=== PATIENT | female | born 1955 | race American Indian/Alaskan Native ===

== ENCOUNTER → 2024-11-01 | Outpatient (CLI) | payer OTHER, SELFPAY ==
[2024-11-01 10:15] LABS: Alanine Aminotransferase 13 U/L (10-49); Albumin, Serum 4.1 gm/dL (3.4-4.8); Albumin/Globulin Ratio 1.9 (1.2-2.2); Alkaline Phosphatase 120 U/L (46-116); Anion Gap 8 (7-16); Aspartate Amino Transferase 15 U/L (0-34); BUN/Creatinine Ratio 16 Ratio (12-20); Bilirubin,Total 0.9 mg/dL (0.3-1.2); Blood Urea Nitrogen 13 mg/dL (9-23); Calcium 9.7 mg/dL (8.3-10.6); Calcium (Corrected) 9.7 mg/dL (8.5-10.1); Carbon Dioxide 25.8 mMol/L (20.0-31.0); Chloride 107 mMol/L (98-107); Creatinine (Component) 0.8 mg/dL (0.6-1.3); Globulin 2.2 gm/dL (2.3-3.5); Glucose 97 mg/dL (74-106); Osmolality,Calculated 281 (275-295); Potassium 4.8 mMol/L (3.4-5.1); Sodium 141 mMol/L (136-145); Thyroid Stimulating Hormone 2.09 uIU/mL (0.55-4.78); Total Protein 6.3 gm/dL (5.7-8.2); eGFR > 60 See Note
[2024-11-01 15:31] LABS: Cardiac Risk Estimate 2.9 RATIO (3.7-5.6); Cholesterol 171 mg/dL (132-200); HDL Cholesterol 59 mg/dL (40-60); LDL Cholesterol,Calculated 89 mg/dL (0-130); Triglycerides 117 mg/dL (30-150)
== END | disposition home or self-care (01) ==
PROVIDERS: PCP Internal Medicine; Referring Provider Internal Medicine Cardiovascular Disease; Visit Provider Internal Medicine Cardiovascular Disease
DX: E78.5 Hyperlipidemia, unspecified (principal); I10 Essential (primary) hypertension; E03.9 Hypothyroidism, unspecified
CPT/HCPCS: 36415; 80053; 80061; 84443

== ENCOUNTER → 2024-12-06 | Outpatient (CLI) | payer OTHER, SELFPAY ==
--- NOTE | 2024-12-06 | XR_ITS ---
Examination: Lumbar spine, 5 views Technique: Lumbar spine AP, lateral, coned lateral lower lumbar spine, bilateral obliques 5 views Exam date and time: December 06, 2024 1158 hours INDICATIONS: Low back pain months FINDINGS: Moderate osteopenia Lumbar levoscoliosis 10 degrees Moderate narrowing hip joints Advanced facet arthropathy at the lower 2 lumbar levels Grade 1 anterolisthesis L4 on L5 Moderate descending L4-L5 Advanced disc narrowing L5-S1 IMPRESSION: Advanced degenerative disc disease L5-S1 with spinal stenosis
== END | disposition home or self-care (01) ==
LOC: CDIM 11:06
PROVIDERS: PCP Internal Medicine; Referring Provider Orthopaedic Surgery; Visit Provider Orthopaedic Surgery
DX: M51.379 Other intervertebral disc degeneration, lumbosacral region without mention of lumbar back pain or lower extremity pain (principal); M48.07 Spinal stenosis, lumbosacral region
CPT/HCPCS: 72110

== ENCOUNTER → 2025-03-27 | Outpatient (CLI) | payer OTHER, SELFPAY ==
--- NOTE | 2025-03-27 13:48 | XR_ITS ---
Examination: PA lateral chest 2 views TECHNIQUE: Upright PA lateral chest 2 views Date and time: March 27, 2025 1408 hours Comparison 07/31/2023 INDICATIONS: Diagnosis presence of other specified devices FINDINGS: Stable position presumed epicardial pacing lead CABG Minimal prominence left ventricle Retrocardiac gastric hernia No pneumonia or pulmonary edema Minor scarring in the left upper lobe IMPRESSION: No interval pneumonia or pulmonary edema
== END | disposition home or self-care (01) ==
LOC: CDIM 13:32
PROVIDERS: PCP Internal Medicine; Referring Provider Orthopaedic Surgery; Visit Provider Orthopaedic Surgery
DX: Z97.8 Presence of other specified devices (principal)
CPT/HCPCS: 71046

== ENCOUNTER → 2025-07-05 | Outpatient (CLI) | payer OTHER, SELFPAY ==
[2025-07-05 08:52] LABS: Collection Type, Urine Clean Catch
[2025-07-05 09:47] LABS: Bacteria,Urine Rare; Bilirubin,Urine Negative (Negative); Blood,Urine Negative (Negative); Clarity,Urine Clear (Clear/Hazy); Color,Urine Lt-Yellow (Lt Yel-Yel); Glucose, Urine Negative (Negative); Ketones,Urine Negative (Negative); Leukocyte Esterase,Urine Negative (Negative); Nitrite,Urine Negative (Negative); PH,Urine 6.5 (5.0-7.0); Protein,Urine Negative (Neg - Trace); RBC,Urine 3 /hpf (0-3); Specific Gravity,Urine 1.021 (1.001-1.035); Squamous Epithelial Cell,Urine 7 /hpf (0-5); Urobilinogen,Urine Negative mg/dL (0.0-1.0); WBC,Urine 1 /hpf (0-5)
[2025-07-05 09:51] LABS: Basophils # (Auto) 0.1 Thou/mm3 (0.0-0.2); Basophils % (Auto) 1 % (0-2.5); Eosinophils # (Auto) 0.1 Thou/mm3 (0.0-0.5); Eosinophils % (Auto) 2 % (0-10); Hematocrit 41.5 % (36.0-46.0); Hemoglobin 13.6 g/dL (12.0-16.0); Immature Granulocytes Auto 0.02 Thou/mm3 (0.00-0.00); Lymphocytes # (Auto) 2.0 Thou/mm3 (1.0-4.8); Lymphocytes % (Auto) 27 % (10-50); Mean Corpuscular HGB Conc 32.8 g/dl (31.0-37.0); Mean Corpuscular Hemoglobin 31.3 pg (25.0-35.0); Mean Corpuscular Volume 96 fL (80-100); Monocytes # (Auto) 0.7 Thou/mm3 (0.0-0.8); Monocytes % (Auto) 9 % (0-12); Neutrophils # (Auto) 4.4 Thou/mm3 (1.8-7.7); Neutrophils % (Auto) 61 % (37-80); Nucleated Red Blood Cell # 0.00 Thou/mm3 (0.00-0.00); Nucleated Red Blood Cell % 0 /100 WBC (0); Platelet Count 312 Thou/mm3 (140-440); RDW Standard Deviation 43.6 fL (36.4-46.3); Red Blood Count 4.34 Miln/mm3 (4.00-5.20); White Blood Count 7.2 Thou/mm3 (3.6-11.0)
[2025-07-05 09:52] LABS: Glucose Estimated Average 128 mg/dL (80-131); Hemoglobin A1C 6.1 % Hgb (4.8-6.0)
[2025-07-05 10:05] LABS: Vitamin B12 349 pg/mL (211-911); Vitamin D 25 Hydroxy Total 39.4 ng/mL (7.3-40.2)
[2025-07-05 10:13] LABS: Alanine Aminotransferase 13 U/L (10-49); Albumin, Serum 4.4 gm/dL (3.4-4.8); Albumin/Globulin Ratio 1.6 (1.2-2.2); Alkaline Phosphatase 115 U/L (46-116); Anion Gap 9 (7-16); Aspartate Amino Transferase 17 U/L (0-34); BUN/Creatinine Ratio 16 Ratio (12-20); Bilirubin,Total 0.9 mg/dL (0.3-1.2); Blood Urea Nitrogen 13 mg/dL (9-23); Calcium 9.5 mg/dL (8.3-10.6); Calcium (Corrected) 9.5 mg/dL (8.5-10.1); Carbon Dioxide 27.6 mMol/L (20.0-31.0); Chloride 105 mMol/L (98-107); Creatinine (Component) 0.8 mg/dL (0.6-1.3); Globulin 2.7 gm/dL (2.3-3.5); Glucose 97 mg/dL (74-106); Osmolality,Calculated 283 (275-295); Potassium 4.8 mMol/L (3.4-5.1); Sodium 142 mMol/L (136-145); Thyroid Stimulating Hormone 2.23 uIU/mL (0.55-4.78); Total Protein 7.1 gm/dL (5.7-8.2); Uric Acid 5.6 mg/dL (3.1-7.8); eGFR > 60 See Note
[2025-07-05 10:32] LABS: Cardiac Risk Estimate 2.6 RATIO (3.7-5.6); Cholesterol 163 mg/dL (132-200); HDL Cholesterol 62 mg/dL (40-60); LDL Cholesterol,Calculated 75 mg/dL (0-130); Triglycerides 129 mg/dL (30-150)
== END | disposition home or self-care (01) ==
LOC: COPL 07:51
PROVIDERS: PCP Internal Medicine; Referring Provider Internal Medicine; Visit Provider Internal Medicine
DX: Z00.00 Encounter for general adult medical examination without abnormal findings (principal); I10 Essential (primary) hypertension; E78.5 Hyperlipidemia, unspecified; I25.10 Atherosclerotic heart disease of native coronary artery without angina pectoris; I48.91 Unspecified atrial fibrillation
CPT/HCPCS: 36415; 80053; 80061; 81001; 82306; 82607; 83036; 84443; 84550; 85025

== ENCOUNTER 2025-07-18 21:47 | Emergency (ER) | payer OTHER, SELFPAY ==
--- NOTE | 2025-07-18 21:52 | EKG_ITS ---
[facility] Test Date: 2025-07-18 Pat Name: AMANDA CEVALLOS Department: Room: - Gender: Female [employer]: : 1955 Requested By: ED Temporary Provider Order Number: [id number] Reading MD: ED Temporary Provider Measurements Intervals [place] Rate: 140 P: SC: QRS: 52 QRSD: 162 T: -64 QT: 329 QTc: 502 Interpretive Statements ATRIAL FLUTTER/TACHYCARDIA WITH RAPID VENTRICULAR RESPONSE INTRAVENTRICULAR CONDUCTION DELAY [130+ ms QRS DURATION] Compared to ECG 08/09/2024 19:52:02 Intraventricular conduction delay now present Sinus rhythm no longer present /store/S0/[id number].pdf
--- NOTE | 2025-07-18 22:01 | EDNOTE_ITS ---
ED Chest Pain RME/HPI General Chief Complaint: Chest Pain Stated Complaint: HEART RACING, PT STATES AFIB Time Seen by Provider: 07/18/25 22:04 Arrival date/time: 07/18/25 21:47 RME / HPI RME / HPI narrative: See [facility] for Dr. White's HPI documentation. Related Data Home Medications ?Medication ?Instructions ?Recorded ?Confirmed atorvastatin 40 mg tablet 40 mg PO QDAY 07/24/1908/01 spironolactone 25 mg tablet 25 mg PO QDAY 07/24/19 furosemide 20 mg tablet (Lasix) 40 mg PO EVERYOTHERDAY 10/12/19 08/01/23 levothyroxine 25 mcg tablet 25 mcg PO QDAY 10/12/19 estradiol 0.5 mg tablet 0.5 mg PO QDAY 12/13/1907/15 warfarin 2.5 mg tablet 2.5 mg PO QDAY 08/01/2307/15 Allergies Allergy/AdvReac Type Severity Reaction Status Date / Time naproxen Allergy Severe Swelling Verified 06/22/23 11:57 of Lip/Tongue/Throat Review of Systems Review of Systems Systems Reviewed: All systems reviewed, normal except as documented ED Exam Narrative Physical exam: See [facility] for Dr. White's physical exam documentation. Course Course Course Narrative: CXR is ordered for determining the etiology of chest pain. Quality Measures none Orders Category Date Time Status Bedside COVID-19 Antigen Test NOW Care 07/18/25 22:05 Completed Bedside Influenza A&B Antigen Test NOW Care 07/18/25 22:05 Completed EKG (ED ONLY) *Do not use* NOW Care 07/18/25 21:52 Completed Saline [Insert IV] NOW Care 07/18/25 22:05 Completed EKG (ED Only) Stat Exams 07/18/25 21:52 Ordered XR chest 1V portable Stat Exams 07/18/25 22:05 Completed Alcohol, Blood Medical Stat Lab 07/18/25 22:30 Completed BNP [B-Type Natriuretic Peptide] Stat Lab 07/18/25 22:30 Completed Bilirubin,Direct Stat Lab 07/18/25 22:30 Completed CBC Stat Lab 07/18/25 22:30 Completed CMP [Comprehensive Metabolic Panel] Stat Lab 07/18/25 22:30 Completed D-Dimer Stat Lab 07/18/25 22:30 Completed Magnesium Stat Lab 07/18/25 22:30 Completed PT [Prothrombin Time with INR] Stat Lab 07/18/25 22:30 Completed PTT [Partial Thromboplastin Time] Stat Lab 07/18/25 22:30 Completed TSH [Thyroid Stimulating Hormone] Stat Lab 07/18/25 22:30 Completed Troponin I Stat Lab 07/18/25 22:30 Completed Troponin I Stat Lab 07/19/25 02:16 Completed UA, C/S IF [Urinalysis, C/S if Indicated] Stat Lab 07/18/25 23:24 Completed DILTIAZEM in D5W 125 MG Med 07/18/25 22:08 Discontinued 125 mg in 125 ml IV 5 mg/hr Diltiazem Inj [Cardizem Inj] Med 07/18/25 22:08 Discontinued 20 mg IV X1 ONE Vital Signs Vital signs: Vital Signs Temperature 98.2 F 07/18/25 22:06 Pulse Rate 122 H 07/18/25 22:06 Respiratory Rate 19 07/18/25 22:06 Blood Pressure 143/107 H 07/18/25 22:06 Pulse Oximetry (%) 97 07/18/25 22:06 Oxygen Delivery Method Room Air 07/18/25 22:06 Chest Pain MDM Narrative MDM Narrative:: This section includes all my notes and documentations, including HPI, PE, and ED course. Souleymane White MD HPI: 70yo female with a history of CABG, tricuspid valve replacement, Afib on Warfarin, HTN here with palpitations and chest pain for the last couple hours. No shortness of breath. Insole And Outsole Preparer is Dr. Brewster. No other complaints reported. ROS: All negative except as documented in HPI. Physical Exam: General: Alert and oriented. No acute distress when remaining still. Eyes: Conjunctivae and lids clear. ENT: No nasal congestion. Neck: Supple. Heart: Irregular irregular (140 bpm). Lungs: No respiratory distress. Good air movement. No rhonchi, wheezing, rales. Abdomen: Soft and nontender. Normal bowel sounds. No distension. No rebound or guarding. Back: No CVA tenderness. Skin: Warm and dry. Neuro: Alert and oriented X 3. I reviewed all diagnostic test results. My interpretation of the EKG is atrial fibrillation with RVR. My interpretation of the chest x-ray is unremarkable. Blood tests and urine tests are unremarkable. COVID/Influenza negative. At this point, diagnoses include: Atrial fibrillation with rapid ventricular response Treatment here included: Cardizem bolus Significant improvement noted. Recommended outpatient mangement. Based on my best medical judgment, made decision no further evaluation or treatment indicated at this time. Patient understands and agrees to the discharge instructions customized and printed, see below. Discharge instructions from Dr. White: 1. After extensive evaluation, there is no life-threatening condition. Such as heart attack or pulmonary embolism (blood clots in your lungs) or pneumothorax (collapsed lung). 2. You were successfully treated for atrial fibrillation with severely high heart rate. 3. Make sure you take all your medications, including diltiazem this morning. 4. See your manager infusion later today on 07/19/25 for recheck and further care. At minimum, call the office and let them know what happened and ask for further instructions. 5. Seek immediate medical care with worsening or with any concerns. Souleymane White MD Patient data External records reviewed:: [facility] previous records (Per chart review, patient was seen here on 08/09/24 for CVA.) Clinical information provided by:: patient Social determinants that could affect healthcare access:: none Patient has the following chronic illnesses:: Hypothyroidism, HTN, aFib, CABG, tricuspid valve replacement How is presenting disease/condition affected by chronic disease/condition?: uneffected by Evaluation data The following diagnostics were reviewed and interpreted by me:: lab results, radiology exam(s) and EKG tracing(s) (My interpretation of the EKG is: Atrial fibrillation/flutter with RVR (140 bpm) with nonspecific ST-T changes. Souleymane White MD) Lab and/or radiology exams considered but not ordered:: none Interpretation Summary: I reviewed all diagnostic test results. My interpretation of the EKG is atrial fibrillation with RVR. My interpretation of the chest x-ray is unremarkable. Blood tests and urine tests are unremarkable. COVID/Influenza negative. Medications / Prescriptions Medications or Prescriptions considered but not ordered:: none Medication administrations:: Medication Administration History Discontinued Medications Diltiazem HCl (Diltiazem Inj 5 Mg/Ml Vial 5 Ml) 20 mg IV X1 ONE Stop: 07/18/25 22:09 Last Admin: 07/18/25 22:24 Dose: 20 mg Documented By: MARRY Diltiazem HCl (Diltiazem In D5w 125 Mg) 125 mg in 125 mls @ 5 mls/hr IV .Q24H MAXIME Stop: 08/17/25 22:07 Last Infusion: 07/19/25 01:11 Dose: 0 mg/hr, 0 mls/hr Documented By: Admin: 07/18/25 22:25 Dose: 5 mg/hr, 5 mls/hr Documented By: MARRY Cardizem Consultations Consultation(s) initiated? (list below): No Diagnosis Chest Pain Differential Diagnosis: pneumothorax, stable angina, unstable angina pectoris, atypical chest pain, st elevation myocardial infarction and costochondritis Most likely diagnosis given after review of the tests above:: Atrial fibrillation with rapid ventricular response Admission Indicated Admission indicated?: not indicated Explain why admission is indicated or not indicated:: With significant improvement and no condition needing emergent intervention, there was no indication for admission. Admission Request Was there a request for admission?: No Disposition Plan Disposition Plan: Discharge Discharge Attestation Discharge Attestation: The patient and all family members were given an opportunity to ask questions and understood the discharge instructions. Discharge instructions specifically effects, indications for sooner follow up or return to the emergency department, and the expected course of current diagnosis. Patient condition: Stable Discharge Plan Plan Patient Disposition: HOME (Self Care) Prescriptions/Referrals Prescriptions/Med Rec: No Action atorvastatin 40 mg tablet 40 mg PO QDAY spironolactone 25 mg tablet 25 mg PO QDAY levothyroxine 25 mcg Tablet 25 mcg PO QDAY furosemide [Lasix] 20 mg Tablet 40 mg PO EVERYOTHERDAY estradiol 0.5 mg tablet 0.5 mg PO QDAY warfarin 2.5 mg Tablet 2.5 mg PO QDAY Referrals: Jose Womack MD [Primary Care Provider, Nephrology] - In 1 week Problem List Clinical Impression: Atrial fibrillation with rapid ventricular response Patient/Caregiver Discharge Instructions Discharge Activity: activity as tolerated Education Materials: ED Atrial Fibrillation Additional Instructions: Discharge instructions from Dr. White: 1. After extensive evaluation, there is no life-threatening condition.? Such as heart attack or pulmonary embolism (blood clots in your lungs) or pneumothorax (collapsed lung). 2. You were successfully treated for atrial fibrillation with severely high heart rate. 3. Make sure you take all your medications, including diltiazem this morning. 4. See your manager infusion later today on 07/19/25 for recheck and further care. At minimum, call the office and let them know what happened and ask for further instructions. 5. Seek immediate medical care with worsening or with any concerns.?? Print Language: [place] Stand Alone Forms: Natalie Award Info., Patient Portal Info Letter
[2025-07-18 22:05] VITALS: BMI 31.2
--- NOTE | 2025-07-18 22:05 | XR_ITS ---
Examination: AP chest single view Technique one AP portable upright chest single view Date and time: July 18, 2025, 10:15 PM, comparison 06/27/2025 Indications: Shortness of breath chest pain today. Findings: Mild enlargement cardiac contour Median sternotomy wires Stable position cardiac leads Mild vascular congestion. No interval lobar pneumonia or pulmonary edema Linear opacity overlies the right upper chest and soft tissue, clinical correlation advised Impression: Mild vascular congestion No interval pneumonia or pulmonary edema
[2025-07-18 22:06] VITALS: BP 143/107; PULSE 122; RESP 19; TEMP 36.8; O2SAT 97
[2025-07-18 22:24] VITALS: BP 141/86; PULSE 136
[2025-07-18] MEDS: DILTIAZEM INJ 5 MG/ML VIAL 5 ML 20 MG IV (22:24)
[2025-07-18 22:25] VITALS: BP 141/86; PULSE 125
[2025-07-18] MEDS: DILTIAZEM in D5W 125 MG 125 MG/125 ML BAG IV (22:25)
[2025-07-18 22:42] LABS: Basophils # (Auto) 0.1 Thou/mm3 (0.0-0.2); Basophils % (Auto) 1 % (0-2.5); Eosinophils # (Auto) 0.2 Thou/mm3 (0.0-0.5); Eosinophils % (Auto) 2 % (0-10); Hematocrit 42.0 % (36.0-46.0); Hemoglobin 14.3 g/dL (12.0-16.0); Immature Granulocytes Auto 0.02 Thou/mm3 (0.00-0.00); Lymphocytes # (Auto) 2.9 Thou/mm3 (1.0-4.8); Lymphocytes % (Auto) 29 % (10-50); Mean Corpuscular HGB Conc 34.0 g/dl (31.0-37.0); Mean Corpuscular Hemoglobin 31.8 pg (25.0-35.0); Mean Corpuscular Volume 93 fL (80-100); Monocytes # (Auto) 1.3 Thou/mm3 (0.0-0.8); Monocytes % (Auto) 13 % (0-12); Neutrophils # (Auto) 5.6 Thou/mm3 (1.8-7.7); Neutrophils % (Auto) 56 % (37-80); Nucleated Red Blood Cell # 0.00 Thou/mm3 (0.00-0.00); Nucleated Red Blood Cell % 0 /100 WBC (0); Platelet Count 315 Thou/mm3 (140-440); RDW Standard Deviation 43.0 fL (36.4-46.3); Red Blood Count 4.50 Miln/mm3 (4.00-5.20); White Blood Count 10.0 Thou/mm3 (3.6-11.0)
[2025-07-18 23:05] LABS: B-Type Natriuretic Peptide 77 pg/mL (0-100)
[2025-07-18 23:11] LABS: D-Dimer < 250 ng/mL (<600)
[2025-07-18 23:17] LABS: INR 2.7 (0.9-1.3); Partial Thromboplastin Time 41.2 Seconds (22.0-36.0); Prothrombin Time 27.7 Seconds (9.0-12.2)
[2025-07-18 23:28] LABS: Alanine Aminotransferase 12 U/L (10-49); Albumin, Serum 4.7 gm/dL (3.4-4.8); Albumin/Globulin Ratio 1.7 (1.2-2.2); Alcohol, Blood Medical < 3.0 mg/dL (0-10.0); Alkaline Phosphatase 153 U/L (46-116); Anion Gap 13 (7-16); Aspartate Amino Transferase 14 U/L (0-34); BUN/Creatinine Ratio 13 Ratio (12-20); Bilirubin,Direct 0.2 mg/dL (0.0-0.3); Bilirubin,Total 0.8 mg/dL (0.3-1.2); Blood Urea Nitrogen 13 mg/dL (9-23); Calcium 9.8 mg/dL (8.3-10.6); Calcium (Corrected) 9.8 mg/dL (8.5-10.1); Carbon Dioxide 24.3 mMol/L (20.0-31.0); Chloride 105 mMol/L (98-107); Creatinine (Component) 1.0 mg/dL (0.6-1.3); Estimated Creatinine Clearance 45.2 mL/min (>60); Globulin 2.7 gm/dL (2.3-3.5); Glucose 93 mg/dL (74-106); Magnesium 2.3 mg/dL (1.6-2.6); Osmolality,Calculated 283 (275-295); Potassium 4.2 mMol/L (3.4-5.1); Sodium 142 mMol/L (136-145); Thyroid Stimulating Hormone 4.56 uIU/mL (0.55-4.78); Total Protein 7.4 gm/dL (5.7-8.2); Troponin I < 0.002 ng/mL (0.0-0.045); eGFR 60 See Note
[2025-07-18 23:38] LABS: Collection Type, Urine Clean Catch
[2025-07-19] VITALS: BP 102/68; PULSE 95; RESP 16; TEMP 36.6; O2SAT 95
[2025-07-19 00:20] LABS: Bacteria,Urine Rare; Bilirubin,Urine Negative (Negative); Blood,Urine Negative (Negative); Clarity,Urine Clear (Clear/Hazy); Color,Urine Colorless (Lt Yel-Yel); Culture Indicated,Urine Not Indicated; Glucose, Urine Negative (Negative); Ketones,Urine Negative (Negative); Leukocyte Esterase,Urine Negative (Negative); Nitrite,Urine Negative (Negative); PH,Urine 7.0 (5.0-7.0); Protein,Urine Negative (Neg - Trace); RBC,Urine 1 /hpf (0-3); Specific Gravity,Urine 1.007 (1.001-1.035); Squamous Epithelial Cell,Urine 1 /hpf (0-5); Urobilinogen,Urine Negative mg/dL (0.0-1.0); WBC,Urine 1 /hpf (0-5)
[2025-07-19 00:32] VITALS: BP 102/68; PULSE 83; RESP 15; O2SAT 96
[2025-07-19 03:05] LABS: Troponin I < 0.002 ng/mL (0.0-0.045)
[2025-07-19 03:45] VITALS: BP 112/62; PULSE 67; RESP 15; TEMP 36.8; O2SAT 98
== END 2025-07-19 03:46 | disposition home or self-care (01) ==
PROVIDERS: Emergency Provider Emergency Medicine; PCP Internal Medicine
DX: I48.91 Unspecified atrial fibrillation (principal)
CPT/HCPCS: 36415; 71045; 80053; 80320; 81001; 82248; 83735; 83880; 84443; 84484; 85025; 85379; 85610; 85730; 87400; 87811; 93005; 96365; 96366; 99284; J3490; G0480

== ENCOUNTER → 2025-10-29 | Outpatient (CLI) | payer OTHER, SELFPAY ==
[2025-10-29 08:34] LABS: Basophils # (Auto) 0.1 Thou/mm3 (0.0-0.2); Basophils % (Auto) 1 % (0-2.5); Eosinophils # (Auto) 0.2 Thou/mm3 (0.0-0.5); Eosinophils % (Auto) 3 % (0-10); Hematocrit 41.2 % (36.0-46.0); Hemoglobin 13.7 g/dL (12.0-16.0); Immature Granulocytes Auto 0.03 Thou/mm3 (0.00-0.00); Lymphocytes # (Auto) 2.1 Thou/mm3 (1.0-4.8); Lymphocytes % (Auto) 26 % (10-50); Mean Corpuscular HGB Conc 33.3 g/dl (31.0-37.0); Mean Corpuscular Hemoglobin 31.4 pg (25.0-35.0); Mean Corpuscular Volume 95 fL (80-100); Monocytes # (Auto) 0.7 Thou/mm3 (0.0-0.8); Monocytes % (Auto) 9 % (0-12); Neutrophils # (Auto) 5.0 Thou/mm3 (1.8-7.7); Neutrophils % (Auto) 61 % (37-80); Nucleated Red Blood Cell # 0.00 Thou/mm3 (0.00-0.00); Nucleated Red Blood Cell % 0 /100 WBC (0); Platelet Count 335 Thou/mm3 (140-440); RDW Standard Deviation 44.3 fL (36.4-46.3); Red Blood Count 4.36 Miln/mm3 (4.00-5.20); White Blood Count 8.1 Thou/mm3 (3.6-11.0)
[2025-10-29 08:45] LABS: Alanine Aminotransferase 15 U/L (10-49); Albumin, Serum 4.5 gm/dL (3.4-4.8); Albumin/Globulin Ratio 1.7 (1.2-2.2); Alkaline Phosphatase 126 U/L (46-116); Anion Gap 9 (7-16); Aspartate Amino Transferase 19 U/L (0-34); BUN/Creatinine Ratio 14 Ratio (12-20); Bilirubin,Total 1.1 mg/dL (0.3-1.2); Blood Urea Nitrogen 11 mg/dL (9-23); Calcium 9.0 mg/dL (8.3-10.6); Calcium (Corrected) 9.0 mg/dL (8.5-10.1); Carbon Dioxide 28.4 mMol/L (20.0-31.0); Cardiac Risk Estimate 2.9 RATIO (3.7-5.6); Chloride 106 mMol/L (98-107); Cholesterol 187 mg/dL (132-200); Creatinine (Component) 0.8 mg/dL (0.6-1.3); Globulin 2.7 gm/dL (2.3-3.5); Glucose 104 mg/dL (74-106); HDL Cholesterol 64 mg/dL (40-60); LDL Cholesterol,Calculated 86 mg/dL (0-130); Osmolality,Calculated 284 (275-295); Potassium 4.6 mMol/L (3.4-5.1); Sodium 143 mMol/L (136-145); Thyroid Stimulating Hormone 3.27 uIU/mL (0.55-4.78); Total Protein 7.2 gm/dL (5.7-8.2); Triglycerides 186 mg/dL (30-150); eGFR > 60 See Note
[2025-10-29 09:24] LABS: Collection Type, Urine Clean Catch
[2025-10-29 09:52] LABS: Bacteria,Urine Rare; Bilirubin,Urine Negative (Negative); Blood,Urine Negative (Negative); Color,Urine Yellow (Lt Yel-Yel); Glucose, Urine Negative (Negative); Hyaline Casts,Urine < 1 /hpf (0-1); Ketones,Urine Negative (Negative); Leukocyte Esterase,Urine Positive (Negative); Nitrite,Urine Negative (Negative); PH,Urine 6.5 (5.0-7.0); Protein,Urine Trace (Neg - Trace); RBC,Urine 8 /hpf (0-3); Specific Gravity,Urine 1.025 (1.001-1.035); Squamous Epithelial Cell,Urine 28 /hpf (0-5); Urobilinogen,Urine Negative mg/dL (0.0-1.0); WBC,Urine 3 /hpf (0-5)
[2025-10-29 10:36] LABS: Clarity,Urine Hazy (Clear/Hazy)
== END | disposition home or self-care (01) ==
LOC: COPL 07:54
PROVIDERS: PCP Internal Medicine; Referring Provider Internal Medicine; Visit Provider Internal Medicine
DX: I10 Essential (primary) hypertension (principal); E78.5 Hyperlipidemia, unspecified; E03.9 Hypothyroidism, unspecified
CPT/HCPCS: 36415; 80053; 80061; 81001; 84443; 85025